=== PATIENT | male | born 1950 | race Two or more races ===

== ENCOUNTER 2025-04-16 10:15 | Day surgery (SDC) | payer OTHER, SELFPAY ==
[2025-04-14 06:56] VITALS: BMI 26.6
--- NOTE | 2025-04-14 07:00 | EKG_ITS ---
[facility] Test Date: 2025-04-14 Pat Name: BENJA OBREGON Department: Room: - Gender: Male Global Marketing Manager: LIZ : 1950 Requested By: Sky Schmitz Order Number: [id number] Reading MD: Sky Schmitz Measurements Intervals [place] Rate: 62 P: 28 MT: 161 QRS: -49 QRSD: 102 T: 7 QT: 404 QTc: 413 Interpretive Statements SINUS RHYTHM S1-S2-S3 PATTERN, CONSISTENT WITH PULMONARY DISEASE, RVH, OR NORMAL VARIANT LEFT ANTERIOR FASCICULAR BLOCK [QRS AXIS <= -45, QR IN I, RS IN II] Compared to ECG 01/14/2023 09:33:03 Sinus bradycardia no longer present /store/S0/[id number].pdf
[2025-04-14 08:49] LABS: Collection Type, Urine Clean Catch
[2025-04-14 09:49] LABS: Alanine Aminotransferase 14 U/L (10-49); Albumin, Serum 4.4 gm/dL (3.4-4.8); Albumin/Globulin Ratio 1.8 (1.2-2.2); Alkaline Phosphatase 84 U/L (46-116); Anion Gap 7 (7-16); Aspartate Amino Transferase 20 U/L (0-34); BUN/Creatinine Ratio 16 Ratio (12-20); Bilirubin,Total 0.8 mg/dL (0.3-1.2); Blood Urea Nitrogen 11 mg/dL (9-23); Calcium 9.4 mg/dL (8.3-10.6); Calcium (Corrected) 9.4 mg/dL (8.5-10.1); Carbon Dioxide 26.5 mMol/L (20.0-31.0); Chloride 106 mMol/L (98-107); Creatinine (Component) 0.7 mg/dL (0.6-1.3); Estimated Creatinine Clearance 75.7 mL/min (>60); Globulin 2.4 gm/dL (2.3-3.5); Glucose 100 mg/dL (74-106); Osmolality,Calculated 276 (275-295); Potassium 3.8 mMol/L (3.4-5.1); Sodium 139 mMol/L (136-145); Total Protein 6.8 gm/dL (5.7-8.2); eGFR > 60 See Note
[2025-04-14 09:57] LABS: Basophils # (Auto) 0.0 Thou/mm3 (0.0-0.2); Basophils % (Auto) 1 % (0-2.5); Eosinophils # (Auto) 0.1 Thou/mm3 (0.0-0.5); Eosinophils % (Auto) 4 % (0-10); Hematocrit 37.9 % (41.0-53.0); Hemoglobin 12.6 g/dL (13.5-16.0); Immature Granulocytes Auto 0.00 Thou/mm3 (0.00-0.00); Lymphocytes # (Auto) 1.3 Thou/mm3 (1.0-4.8); Lymphocytes % (Auto) 40 % (10-50); Mean Corpuscular HGB Conc 33.2 g/dl (31.0-37.0); Mean Corpuscular Hemoglobin 29.5 pg (25.0-35.0); Mean Corpuscular Volume 89 fL (80-100); Monocytes # (Auto) 0.5 Thou/mm3 (0.0-0.8); Monocytes % (Auto) 15 % (0-12); Neutrophils # (Auto) 1.3 Thou/mm3 (1.8-7.7); Neutrophils % (Auto) 40 % (37-80); Nucleated Red Blood Cell # 0.00 Thou/mm3 (0.00-0.00); Nucleated Red Blood Cell % 0 /100 WBC (0); Platelet Count 199 Thou/mm3 (140-440); RDW Standard Deviation 44.2 fL (35.1-43.9); Red Blood Count 4.27 Miln/mm3 (4.50-5.90); White Blood Count 3.2 Thou/mm3 (3.8-10.6)
[2025-04-14 10:07] LABS: Bacteria,Urine Rare; Bilirubin,Urine Negative (Negative); Blood,Urine Negative (Negative); Clarity,Urine Clear (Clear/Hazy); Color,Urine Lt-Yellow (Lt Yel-Yel); Glucose, Urine Negative (Negative); Ketones,Urine Negative (Negative); Leukocyte Esterase,Urine Negative (Negative); Nitrite,Urine Negative (Negative); PH,Urine 8.0 (5.0-7.0); Protein,Urine Negative (Neg - Trace); RBC,Urine 1 /hpf (0-3); Specific Gravity,Urine 1.015 (1.001-1.035); Squamous Epithelial Cell,Urine < 1 /hpf (0-5); Urobilinogen,Urine Negative mg/dL (0.0-1.0); WBC,Urine 1 /hpf (0-5)
--- NOTE | 2025-04-15 13:59 | ESHP_ITS ---
RE: BENJA OBREGON : 1950 DATE OF ADMISSION: 04/15/2025 HISTORY OF PRESENT ILLNESS: An elderly gentleman with history of elevated PSA of 6.5. He is now scheduled to have cystoscopy and transrectal prostatic ultrasound with ultrasound-guided prostatic needle biopsy. The patient is a gentleman with prostatism and prostatic obstruction. The patient had been having urinary trouble. He had transurethral resection of prostate done in 2022. He is urinating better, but his PSA is now up to 6.5. ALLERGIES: NONE KNOWN. PAST MEDICAL HISTORY: He has a history of hypertension. No history of diabetes. PAST SURGICAL HISTORY: The patient did have a biopsy done before, which was negative for any malignancy of the prostate when his PSA was 5.8, now it is 6.5. MEDICATIONS: He takes: 1. Lisinopril. 2. Statin medication.. PHYSICAL EXAMINATION : Clinical examination reveals HEENT: Normal. NECK: Supple. LUNGS: Clear. CARDIOVASCULAR: Heart sounds are normal. ABDOMEN: Soft without any organomegaly. No guarding. No rigidity. EXTREMITIES: Normal. GENITOURINARY: Phallus is normal. Testes are down in the scrotum. Rectal examination reveals moderately large smooth prostate. IMPRESSION: Elevated PSA of 6.5. PLAN: Cystoscopy and transrectal prostatic ultrasound with ultrasound-guided prostatic needle biopsy. Planned procedure risks and complications have been discussed with the patient. The patient has understood them and agreed to proceed. DT: 12:36:38 TT: 13:58:00 Ref: [id number] - TID: [id number]
--- NOTE | 2025-04-15 16:09 | SUR.PREOP ---
Pt notified to come in at 1030 tomorrow.
--- NOTE | 2025-04-16 07:54 | SUR.PREOP ---
Patient expressed gratitude for prayer before their procedure.
--- NOTE | 2025-04-16 07:57 | SUR.PREOP ---
Patient expressed gratitude for prayer before their procedure.
[2025-04-16 10:49] VITALS: BP 128/81; PULSE 61; RESP 16; TEMP 36.6; O2SAT 97; BMI 26.2
[2025-04-16 12:43] VITALS: BP 105/70; PULSE 59; RESP 20; TEMP 36.7; O2SAT 99
--- NOTE | 2025-04-16 12:43 | SUR.PHASEII ---
1243: Pt. AAOx4, vitals stable, breathing unlabored, no complaint of pain or nausea, no dressing in place, no active bleed noted, report received from Nick CRAWFORD and Alejo PAULINO.
[2025-04-16 12:48] VITALS: BP 103/63; PULSE 59; RESP 15; TEMP 36.7; O2SAT 98
[2025-04-16 12:53] VITALS: BP 116/68; PULSE 59; RESP 17; TEMP 36.7; O2SAT 96
[2025-04-16 12:58] VITALS: BP 122/74; PULSE 61; RESP 15; TEMP 36.6; O2SAT 97
[2025-04-16 13:10] VITALS: BP 119/77; PULSE 63; RESP 20; TEMP 36.6; O2SAT 98
--- NOTE | 2025-04-16 13:20 | SUR.PHASEII ---
1320: Pt. AAOx4, vitals stable, breathing unlabored, no complaint of pain or nausea, no dressing in place, no active bleed noted, pt. tolerated sips of water well, pt. ambulated to wheelchair with steady gait and no assist, no complications. Gave discharge instructions to the pt. and his ride using lang interpreter, both verbalized understanding and ahd no further questions. Pt. left with all personal belongings.
--- NOTE | 2025-04-16 13:30 | XR_ITS ---
Examination: Transrectal prostate sonography TECHNIQUE: Grayscale sonographic transrectal prostate sonographic images Date and time: April 16, 2025 1221 hours INDICATIONS: Prostate biopsies by physician in the OR today FINDINGS: Multiple transrectal sonographic images prostate No prostate volume data provided by the technologist IMPRESSION: Transrectal prostate sonographic images provided for biopsies by physician in the OR today
--- NOTE | 2025-04-16 18:19 | ESOP_ITS ---
RE: BENJA OBREGON : 1950 DATE OF OPERATION: 04/16/2025 PREOPERATIVE DIAGNOSES: Prostatism, prostatic obstruction, and elevated PSA of 6.5. POSTOPERATIVE DIAGNOSES: Prostatism, prostatic obstruction, and elevated PSA of 6.5. PROCEDURES PERFORMED: Cystoscopy, urethral dilatation, transrectal prostatic ultrasound with ultrasound-guided prostatic needle biopsy. ANESTHESIA: Monitored anesthesia by JEFFERSON Dhillon. INDICATION: The patient is a 74-year-old gentleman with elevated PSA of 6.5, nocturia. The patient had transurethral resection of the prostate done before. Rectally, he has a moderately enlarged prostate without any nodules. He is now scheduled to have cystoscopy and transrectal prostatic ultrasound with ultrasound-guided prostatic needle biopsy. Planned procedure, risks, and complications have been discussed with the patient. The patient understood them and agreed to proceed. DESCRIPTION OF PROCEDURE: After the patient was brought to the operating table under adequate monitored anesthesia and dorsal lithotomy position, parts were prepped and draped in the usual fashion. Cystoscopy was then carried out, which revealed adequate urethral meatus, normal-appearing urethra; moderately enlarged prostate, bilobed. The left lobe is much larger than the right. There is a left lobe protruding inside the bladder, residual urine 3 ounces, yellow and clear. There are no intravesical stones or tumors. Urine was sent for culture and sensitivity examination. Ureteral orifices were found to be normal in position and appearance. Scope was withdrawn. Urethra was dilated. The patient was then turned into the left lateral position. Transrectal prostatic ultrasound was carried out. Biopsies were obtained from both lobes using ultrasound guidance. Prostatic volume was measured at 51.1 cubic centimeters. The patient tolerated the entire procedure well and left the room in good condition. DT: 12:46:26 TT: 18:18:00 Ref: [id number] - TID: [id number]
== END 2025-04-16 13:20 | disposition home or self-care (01) ==
PROVIDERS: Anesthesiology; PCP Family Medicine; Referring Provider Surgery; Visit Provider Surgery
PROC: 0TJB8ZZ Inspection of Bladder, Via Natural or Artificial Opening Endoscopic (ICD-10-PCS; CPT 52000; principal; 2025-04-16 12:15)
PROC: (CPT 55700; 2025-04-16 12:15)
DX: N40.1 Benign prostatic hyperplasia with lower urinary tract symptoms (principal); N13.8 Other obstructive and reflux uropathy; R35.1 Nocturia; Z01.810 Encounter for preprocedural cardiovascular examination; I44.4 Left anterior fascicular block
CPT/HCPCS: 52281; 55700; 36415; 76942; 80053; 81001; 85025; 87086; 93005; A4217; A4649; J0131; J0694; J1885; J2250; J3010